=== PATIENT | female | born 2000 | race African-American/Black ===

== ENCOUNTER 2021-08-27 18:33 | Emergency (ER) | payer OTHER, SELFPAY ==
[2021-08-27 18:56] VITALS: BP 100/59; PULSE 107; RESP 18; TEMP 38.2; O2SAT 100
--- NOTE | 2021-08-27 20:06 | ED.NAVMDI ---
HPI - Nausea/Vomiting/Diarrhea General Chief complaint: Nausea/Vomiting/Diarrhea Stated complaint: [place]/Vomiting/Diarrhea Time Seen by Provider: 08/27/21 20:07 Source: patient, RN notes reviewed and old records reviewed Mode of arrival: ambulatory Limitations: no limitations History of Present Illness HPI Narrative: 21 year old female who presents to [facility] care with complaints of experiencing since yesterday headache, eye pressure.chills, vomiting and diarrhea and her taste is off. She reports that she had a negative rapid COVID test this morning. Patient states that she has also had some sore throat discomfort, appetite is decreased but is able to drink fluids. Patient has not had any COVID or flu vaccinations. Patient denies any cough or dyspnea with no tachypnea noted SAO2 100% on room air. MD elicited complaint: nausea, vomiting, diarrhea and other (sore throat, headache) Related Data Allergies Allergy/AdvReac Type Severity Reaction Status Date / Time No Known Allergies Allergy Verified 08/27/21 19:08 Review of Systems Review of Systems: CONSTITUTIONAL: Positive for fever, chills, or sweats. EYES: Denies visual changes, redness, or discharge, states some eye pressure. ENT: Positive for rhinorrhea, congestion,positive for sore throat, no otalgia. CARDIOVASCULAR: Denies chest pain, palpitations, or edema. RESPIRATORY: Denies cough or dyspnea. GASTROINTESTINAL: Denies abdominal pain, positive for nausea, vomiting, or diarrhea. GENITOURINARY: Denies dysuria or hematuria. SKIN: Denies rash or itching. MUSCULOSKELETAL: Denies back pain, joint pain, or myalgia. NEUROLOGIC: Positive for headache,no numbness, or weakness. PSYCHIATRIC: Denies anxiety or depression. All systems reviewed & are unremarkable except as noted in HPI and below PMFSH Past Medical History Medical History (Updated 08/29/21 @ 21:16 by Ting Steve NP) Sinus problem Surgical History Surgical History (Updated 08/29/21 @ 21:15 by Ting Steve NP) History of tonsillectomy and adenoidectomy Social History Social History (Updated 08/29/21 @ 21:16 by Ting Steve NP) Smoking status: Never smoker Alcohol intake: unknown Substance use: unknown Gender identity (if verbalized by the patient): Female Comments At time of signature, agree with nursing past medical, surgical, social and family history. There is no relevant family history pertinent to the presenting complaint Exam Narrative: GENERAL: Well-appearing, well-nourished, and in no acute distress. HEAD: Normocephalic, atraumatic. EYES: PERRLA and EOMI. eye pressure and headache ENT: Nares mild redness clear rhinorrhea or epistaxis. Mucous membranes moist.TM's normal with good light reflex, throat red with no lesions or exudates present, no tonsils NECK: Supple.no lymphadenopathy CHEST: Clear to auscultation. No respiratory distress.SAO2 100% on room air HEART: Regular rate and rhythm. No murmur heard. Normal peripheral pulses. ABDOMEN: Soft, nontender on palpation, nondistended, normal active bowel sounds.nausea vomiting and diarrhea EXTREMITIES: Normal range of motion. No edema. SKIN: Warm, dry, no rash. NEURO: No focal deficits. Alert and oriented x3. Course Vital Signs Vital signs: Vital Signs Temperature 38.2 C H 08/27/21 18:56 Pulse Rate 107 H 08/27/21 18:56 Respiratory Rate 18 08/27/21 18:56 Blood Pressure 100/59 L 08/27/21 18:56 Pulse Oximetry 100 08/27/21 18:56 Temperature 38.2 C H 08/27/21 18:56 Pulse Rate 107 H 08/27/21 18:56 Respiratory Rate 18 08/27/21 18:56 Blood Pressure 100/59 L 08/27/21 18:56 Pulse Oximetry 100 08/27/21 18:56 MDM - Nausea/Vomiting/Diarrhea Differential Diagnosis Differential diagnosis: Likely gastroenteritis and other (viral syndrome, headache, nausea and vomiting) Medical Records Attestation: I reviewed the patient's medical records. Lab Data Attestation: I reviewed the patient's lab results.
== END 2021-08-27 20:43 | disposition home or self-care (01) ==
PROVIDERS: Emergency Provider Registered Nurse
DX: R11.2 Nausea with vomiting, unspecified (principal); G44.89 Other headache syndrome; Z20.822 Contact with and (suspected) exposure to COVID-19
CPT/HCPCS: 87081; 87804; 87880; 99213; G0463